=== PATIENT | male | born 1990 | race African-American/Black ===

== ENCOUNTER 2024-01-15 07:30 | Emergency (ER) | payer OTHER ==
[2024-01-15 07:44] VITALS: BP 146/84; PULSE 87; RESP 20; TEMP 98.4; BMI 34.4
[2024-01-15] MEDS ORDERED: LIDOCAINE 5% TOPICAL PATCH ONE (07:57)
[2024-01-15] MEDS ORDERED: IBUPROFEN 600 MG TABLET (FP) PO ONE (07:57)
[2024-01-15] MEDS: IBUPROFEN 600 MG TABLET (FP) PO ONE (07:59)
[2024-01-15] MEDS: LIDOCAINE 5% TOPICAL PATCH TP ONE (07:59)
[2024-01-15] MEDS ORDERED: LIDOCAINE PATCH REMOVAL MC SCH (22:00)
== END 2024-01-15 09:59 | disposition home or self-care (01) ==
LOC: FER 07:30
DX: S39.012A Strain of muscle, fascia and tendon of lower back, initial encounter (principal); M54.50 Low back pain, unspecified; V89.2XXA Person injured in unspecified motor-vehicle accident, traffic, initial encounter; Y93.I9 Activity, other involving external motion; Y92.009 Unspecified place in unspecified non-institutional (private) residence as the place of occurrence of the external cause
CPT/HCPCS: 72100-TC-FY; 99283-25